=== PATIENT | male | born 1950 | race African-American/Black ===

== ENCOUNTER → 2016-05-10 | Day surgery (SDC) | payer MEDICARE, MEDICAID ==
--- NOTE | 2016-05-08 15:58 | Pre-Procedure Note/Attestation ---
Pre-Procedure Note/Attestation Complete Prior to Procedure Planned Procedure: right Procedure Narrative: phaco with IOL, OD Indications for Procedure Pre-Operative Diagnosis: cataract Attestation I attest that I discussed the nature of the procedure; its benefits; risks and complications; and alternatives (and the risks and benefits of such alternatives ), prior to the procedure, with the patient (or the patient's legal community service representative). I attest that, if there was a reasonable possibility of needing a blood transfusion, the patient (or the patient's legal community service representative) was given the [facility] standardized written summary, pursuant to the Manny Kuldeep Blood Safety Act ([place] Health and Safety Code # 1645, as amended). I attest that I re-evaluated the patient just prior to the surgery and that there has been no change in the patient's H&P, except as documented below: RICHARD THORPE May 08, 2016 15:58
--- NOTE | 2016-05-08 15:59 | Opthalmology H&P ---
Ophthalmology H&P H&P Chief Complaint: decreased vision in right eye HPI Vision Affects Ability to: read, focus/use eyes together, manage personal affairs HPI Narrative blurry vision Exam Visual Acuity: OD: CF OS: 20/25 Tension: OD: 13 OS; 13 Eye Exam: normal OU: anterior chambers, corneas, external exam, levator function, marginal reflex distance, palpebral fissure-width, findings: fundus exam - OD: 0.4 OS; 0.4, lens - OD; ns OS: ns Assessment/Plan Diagnosis: (1) Cataract Treatment Plan: cataract extraction w/ lens implant Goals of Treatment: improvement of vision, enhance quality of life Attestation Attestation The risks and benefits of the surgery as well as alternative procedures were explained to the patient in detail. RICHARD THORPE May 08, 2016 15:59
[~2016-05-10] VITALS: Ht 175.3 cm; Wt 79.8 kg
[2016-05-10] VITALS (10 sets, daily range): BP systolic 119–150; BP diastolic 73–89
[~2016-05-10] MED LIST: Akten 3.5% 1ml Btl RIGHT EYE ONE; BSS 15ml BTL ONE; BSS 500ml btl ONE; COMBIGAN EYE DRO5 ML OP; Dexamethasone 4mg/ml vial ONE; ENSURE ORIGINA237 ML PO; EPINEPHrine 1mg/1ml Amp ONE; LR 1000ml 1,000 ML IVLG SCH; LR 1000ml ONE; MULTIVITAMINS1 EAC2 ORAL; Maxitrol Opth Oint 3.5gm ONE; Midazolam 2mg/2ml Inj ONE; NS Irrig 1000ml ONE; PANTOPRAZOLE SO40 MG ORAL; Povidone-Iodine 5% opth solution ONE; Pred Forte 1% Opth Susp 1ml ONE; Propofol 10mg/ml 20ml IV ONE; Sodium Hyaluronate 14 mg/ml 0.85ml ONE; Sterile Water Irrig 1000ml IRRIG ONE; TYLENOL EXTRA500 MG ORAL; Tobramycin Op Soln 0.3% ONE; VIT E PO; VITAMIN D1000 UNI1 ORAL; fentaNYL 100 mcg/2 mL IV ONE; fentaNYL 100 mcg/2 mL IV PRN
[2016-05-10] MEDS: Cyclopentolate 1% Opth Sol RIGHT EYE SCH ×3 (07:19→07:41)
[2016-05-10] MEDS: Diclofenac Sod 0.1% Op Soln RIGHT EYE SCH ×3 (07:19→07:41)
[2016-05-10] MEDS: Tropicamide 1% Opth Soln RIGHT EYE SCH ×3 (07:20→07:41)
[2016-05-10] MEDS: Phenylephrine 10% Opth Soln 5ml RIGHT EYE SCH ×3 (07:20→07:42)
--- NOTE | 2016-05-10 09:07 | Anethesia Preoperative Eval ---
Anesthesia Pre-op PMH/ROS General Date of Evaluation: May 10, 2016 Time of Evaluation: 08:30 Anesthesiologist: Willie ASA Score: ASA 3 Mallampati Score Class I : Soft palate, uvula, fauces, pillars visible Class II: Soft palate, uvula, fauces visible Class III: Soft palate, base of uvula visible Class IV: Only hard plate visible Mallampati Classification: Class II Surgeon: Mae Diagnosis: R eye catarat Surgical Procedure: R eye cataract extraction wit IOL Anesthesia History: none Social History: drug use - H/O Family History: no anesthesia problems Allergies: Coded Allergies: TRAMADOL (Verified Adverse Reaction, Intermediate, "UPSET STOMACH", ) Medications: see eMAR Past Medical History Cardiovascular: Reports: HTN, Denies: CAD, MS, arrhythmia, other, valve dz Pulmonary: Denies: COPD, RAMIN, asthma, other Gastrointestinal/Genitourinary: Reports: GERD, other - Hep C. Liver cell CA cirosis, Protate CA s/p Sx, Denies: CRI, ESRD Neurologic/Psychiatric: Denies: CVA, TIA, dementia, depression/anxiety, other Endocrine: Denies: DM, hypothyroidism, other, steroids HEENT: Reports: cataract (L), cataract (R), Denies: HAVASUPAI (L), HAVASUPAI (R), glaucoma, other Hematology/Immune: Denies: DVT, anemia, bleeding disorder, other Musculoskeletal/Integumentary: Denies: DDD, DJD, OA, RA, edema, other PMH Narrative: as above PSxH Narrative: Prostate ectomy liver ablations Anesthesia Pre-op Phys. Exam Physician Exam Last Vital Signs Date Time Temp Pulse Resp B/P Pulse Ox O2 Delivery O2 Flow Rate FiO2 05/10/16 07:24 98.2 59 20 124/74 99 Room Air Constitutional: NAD Neurologic: CN 2-12 intact Cardiovascular: RRR, no M/R/G Respiratory: CTA Gastrointestinal: S/NT/ND Airway Exam Mallampati Score: Class II MO: full Neck: flexible ROM: limited Teeth: intact Dentures: no lower, no upper Anesthesia Pre-op A/P Labs see chart Studies Pre-op Studies: EKG - NR Risk Assessment & Plan Assessment: ASA3 Plan: MAC Status Change Before Surgery: No Pre-Antibiotics Drug: none VANDANA LYNN M.D. May 10, 2016 09:06
--- NOTE | 2016-05-10 10:10 | Immediate Post-Op Evaluation ---
Immediate Post-Op Evalulation Immediate Post-Op Evalulation Procedure: R eye cataract extaction with IOL Date of Evaluation: May 10, 2016 Time of Evaluation: 09:28 IV Fluids: 300 Blood Products: none Estimated Blood Loss: none Urinary Output: none Blood Pressure Systolic: 148 Blood Pressure Diastolic: 59 Pulse Rate: 62 Respiratory Rate: 20 O2 Sat by Pulse Oximetry: 99 Temperature (Fahrenheit): 97.6 Pain Score (1-10): 1 Nausea: No Vomiting: No Complications none Patient Status: awake, patent, none Hydration Status: adequate VANDANA LYNN M.D. May 10, 2016 10:10
--- NOTE | 2016-05-10 10:40 | 48 Hour Post Anesthesia Eval ---
Post Anesthesia Evaluation Procedure: R eye cataract extaction with IOL Date of Evaluation: May 10, 2016 Time of Evaluation: 10:38 Blood Pressure Systolic: 148 0: 72 Pulse Rate: 62 Respiratory Rate: 20 Temperature (Fahrenheit): 97.4 O2 Sat by Pulse Oximetry: 98 Airway: patent Nausea: No Vomiting: No Pain Intensity: 1 Hydration Status: adequate Cardiopulmonary Status: stable Mental Status/LOC: patient returned to baseline Follow-up Care/Observations: n/a Post-Anesthesia Complications: none Follow-up care needed: ready to discharge VANDANA LYNN M.D. May 10, 2016 10:40
--- NOTE | 2016-05-11 10:25 | Brief Operative Note ---
Immediate Post Operative Note Operative Note Chief Complaint: blurry vision Pre-op Diagnosis: cataract Procedure: phaco with IOL, OD Post-op Diagnosis: Pseudophakia Post-op Diagnosis: same as pre-op Findings: consistent w/pre-op dx studies Surgeon: Mae Anesthesiologist: Willie Anesthesia: MAC Specimen: none Complications: none Estimated Blood Loss: none Drains: none Implant(s) used?: Yes RICHARD THORPE May 11, 2016 10:25
--- NOTE | 2016-05-11 10:26 | Operative Note - PDOC ---
Operative Note Operative Note Date of Operation/Procedure: May 10, 2016 Chief Complaint: blurry vision Pre-op Diagnosis: cataract Procedure: phaco with IOL, OD Post-op Diagnosis: Pseudophakia Post-op Diagnosis: same as pre-op Operative Findings: consistent w/pre-op dx studies Surgeon: Mae Anesthesiologist: Willie Anesthesia: MAC Specimen: none Complications: none Estimated Blood Loss: none Drains: none Implant(s) used?: Yes Indications for Procedure cataract Description of Procedure This patient has been complaining visually significant cataract in the affected eye with the best corrected visual acuity under moderate glare conditions worse. The patient complains of difficulties with glare in performing activities of daily living and wants to manage personal affairs with comfort and accuracy and see well enough to move with safety at home and outdoors. ~~~ The risks, benefits and alternatives of the procedure were discussed with the patient in the office prior to scheduling surgery. All questions from the patient were answered after the surgical procedure was explained in detail. The risks of the procedure as explained to the patient include, but are not limited to, pain, infection, bleeding, loss of vision, retinal detachment, need for further surgery, loss of lens nucleus, double vision, etc. Alternative procedures were discussed which include, to do nothing or seek a second opinion. Informed consent for this procedure was obtained from the patient. The patient was referred to a primary care physician for a cardiopulmonary clearance prior to surgery, after proper evaluation was done patient was properly scheduled for outpatient surgery. The patient was brought to the operating room where the anesthesiologist established I.V. lines and cardiac monitoring leads. Mild intravenous sedation was administered.~~ The patient was then prepared with a 5% solution of povidone -iodine to the conjunctival fornix and lashes, and a 10% solution of povidone- iodine to the lids and periorbital skin. The patient was then draped in the usual sterile fashion. A lid speculum was then placed in the operative eye. A keratome blade was then used to create a biplanar incision into the anterior chamber. Viscoelastics was then instilled into the anterior chamber. A capsulorrhexis was then fashioned with an utrata forceps followed by a BSS and a cannula were then used to hydrodissect and hydro delineate the lens. Paracentesis incision was made at 3 o'clock with sharp blade. The phacoemulsification unit, after being properly adjusted~ and tested, was then used to emulsify the nucleus followed by aspiration and irrigation of residual cortical material. Healon was then instilled into the anterior chamber. The corneal wound was then enlarged to the size of the optic with the harris keratome blade. The intraocular lens was then inspected for right~ power and size~ and thought to be satisfactory. Then the lens was gently placed in the capsular bag. Positioning within the capsular bag was confirmed by direct visualization. Optic centration was accomplished with a Sinskey hook. Viscoelastics~ was removed from the anterior chamber using the irrigation and aspiration unit. The corneal wound was then tested for leaks and none were found. The lid speculum were then removed. Sponge and needle counts were correct. An eye patch and shield were placed over the operative eye. The patient was taken to the recovery room in stable condition. There were no complications. The patient tolerated the procedure well. The patient was then transferred to the ambulatory surgery unit in stable and satisfactory condition , was given detailed written instructions and asked to follow up~ in the office the next day. ~ RICHARD THORPE May 11, 2016 10:26
== END | disposition home or self-care (01) ==
LOC: SUR 05:54
DX: H26.9 Unspecified cataract (principal); I10 Essential (primary) hypertension; K21.9 Gastro-esophageal reflux disease without esophagitis; G47.33 Obstructive sleep apnea (adult) (pediatric); R32 Unspecified urinary incontinence; N52.9 Male erectile dysfunction, unspecified; Z86.19 Personal history of other infectious and parasitic diseases; K74.60 Unspecified cirrhosis of liver; Z85.05 Personal history of malignant neoplasm of liver; K86.2 Cyst of pancreas; N28.1 Cyst of kidney, acquired; G43.909 Migraine, unspecified, not intractable, without status migrainosus; G89.29 Other chronic pain; M54.2 Cervicalgia; M54.5 Low back pain; Z85.46 Personal history of malignant neoplasm of prostate; Z90.79 Acquired absence of other genital organ(s); Z87.891 Personal history of nicotine dependence; Z88.6 Allergy status to analgesic agent
CPT/HCPCS: 66984; J0171; J1100; J2250; J2704; J3010; J3370; J7120; V2632; 94003; 94150